=== PATIENT | female | born 1945 | race Two or more races ===

== ENCOUNTER 2020-04-04 14:49 | Inpatient (IN) | payer OTHER ==
[~2020-04-04] VITALS: Ht 163.8 cm; Wt 67.1 kg
[2020-04-23] MEDS ORDERED: LIPITOR40 MG PO (15:17)
[2020-04-23] MEDS ORDERED: SYNTHROID125 MCG PO (15:17)
[2020-04-23] MEDS ORDERED: GABAPENTIN100 M2 PO (15:18)
[2020-04-23] MEDS ORDERED: RESTORIL30 MG PO (15:18)
[2020-05-03] MEDS ORDERED: ULTRACET PO (12:04)
== END 2020-05-03 17:17 | disposition home or self-care (01) | DRG 331 ==
LOC: SURG 04-30 06:00 → O/R 04-30 06:00 → SURH 04-30 09:30 → SURG 04-30 15:42
PROVIDERS: Urology; ADMIT Surgery; ATTEND Surgery
PROC: 0DTF4ZZ Resection of Right Large Intestine, Percutaneous Endoscopic Approach (ICD-10-PCS; principal; 2020-04-30 09:30)
PROC: 07BC4ZX Excision of Pelvis Lymphatic, Percutaneous Endoscopic Approach, Diagnostic (ICD-10-PCS; 2020-04-30 09:30)
DX: D12.0 Benign neoplasm of cecum (principal); I10 Essential (primary) hypertension

== ENCOUNTER 2020-05-20 00:24 | Inpatient (IN) | payer OTHER ==
[~2020-05-20] VITALS: Ht 162.6 cm; Wt 59.9 kg
[~2020-05-20 00:24] MED LIST: GABAPENTIN100 M2 PO; LIPITOR40 MG PO; RESTORIL30 MG PO; SYNTHROID125 MCG PO; ULTRACET PO
[2020-06-21] MEDS ORDERED: ULTRACET PO (11:23)
[2020-06-21] MEDS ORDERED: PANTOPRAZOLE SO40 MG PO (11:23)
== END 2020-06-21 20:51 | disposition home or self-care (01) | DRG 329 ==
LOC: ER 00:24 → SURH 00:32 → O/R 06-12 10:12 → SURH 06-14 15:36
PROVIDERS: ADMIT Surgery; ATTEND Surgery
PROC: 0D9670Z Drainage of Stomach with Drainage Device, Via Natural or Artificial Opening (ICD-10-PCS; 2020-05-23)
PROC: 0W9J30Z Drainage of Pelvic Cavity with Drainage Device, Percutaneous Approach (ICD-10-PCS; 2020-05-23)
PROC: 0DN80ZZ Release Small Intestine, Open Approach (ICD-10-PCS; 2020-06-11)
PROC: 0D1B0ZN Bypass Ileum to Sigmoid Colon, Open Approach (ICD-10-PCS; 2020-06-11)
PROC: 0BH17EZ Insertion of Endotracheal Airway into Trachea, Via Natural or Artificial Opening (ICD-10-PCS; 2020-06-11)
PROC: 5A1945Z Respiratory Ventilation, 24-96 Consecutive Hours (ICD-10-PCS; 2020-06-11)
PROC: 4A033R1 Measurement of Arterial Saturation, Peripheral, Percutaneous Approach (ICD-10-PCS; 2020-06-11)
PROC: 0DB80ZZ Excision of Small Intestine, Open Approach (ICD-10-PCS; principal; 2020-06-11 15:00)
PROC: 30233N1 Transfusion of Nonautologous Red Blood Cells into Peripheral Vein, Percutaneous Approach (ICD-10-PCS; 2020-06-16)
PROC: 3E0F7SF Introduction of Other Gas into Respiratory Tract, Via Natural or Artificial Opening (ICD-10-PCS; 2020-06-16)
DX: K56.51 Intestinal adhesions [bands], with partial obstruction (principal); K65.1 Peritoneal abscess; J96.00 Acute respiratory failure, unspecified whether with hypoxia or hypercapnia; T81.12XA Postprocedural septic shock, initial encounter; T81.43XA Infection following a procedure, organ and space surgical site, initial encounter; T81.44XA Sepsis following a procedure, initial encounter; N17.8 Other acute kidney failure; D62 Acute posthemorrhagic anemia; I10 Essential (primary) hypertension; E03.9 Hypothyroidism, unspecified; E11.9 Type 2 diabetes mellitus without complications; B95.7 Other staphylococcus as the cause of diseases classified elsewhere; E87.6 Hypokalemia; Z20.828 Contact with and (suspected) exposure to other viral communicable diseases; Z79.4 Long term (current) use of insulin; J38.5 Laryngeal spasm; E83.39 Other disorders of phosphorus metabolism; E83.42 Hypomagnesemia; D12.0 Benign neoplasm of cecum